=== PATIENT | male | born 1945 | race Caucasian/White ===

== ENCOUNTER 2017-12-24 19:08 | Inpatient (IN) | payer OTHER ==
[~2017-12-24] VITALS: Ht 172.7 cm; Wt 74.8 kg
[~2017-12-24 19:08] MED LIST: ALLOPURINOL300 MG; AMLODIPINE BESYL5 MG; ATORVASTATIN CA20 MG; CALCITRIOL0.25 MCG; CARVEDILOL12.5 MG PO; FUROSEMIDE40 MG PO; HUMULIN 70/30 V10 ML; HYDRALAZINE HCL25 MG PO; ISOSORBIDE MONO30 MG PO; LANTUS SOLOSTAR3 ML; LEVAQUIN500 MG PO; LOSARTAN POTAS100 MG; LOSARTAN POTASS50 MG PO; METFORMIN; SIMVASTATIN20 MG PO; TOPROL XL50 M1; ULTRACET PO
== END 2017-12-25 21:09 | disposition designated cancer center or children's hospital (05) | DRG 314 ==
LOC: ER 19:08 → MEDI 21:14 → SEC-K 21:14 → MEDI 22:35
PROC: B246ZZZ Ultrasonography of Right and Left Heart (ICD-10-PCS; principal; 2017-12-24)
PROC: BW28ZZZ Computerized Tomography (CT Scan) of Head (ICD-10-PCS; 2017-12-24)
PROC: 4A12X4Z Monitoring of Cardiac Electrical Activity, External Approach (ICD-10-PCS; 2017-12-25)
DX: I31.3 Pericardial effusion (noninflammatory) (principal); N18.6 End stage renal disease; I42.0 Dilated cardiomyopathy; I13.2 Hypertensive heart and chronic kidney disease with heart failure and with stage 5 chronic kidney disease, or end stage renal disease; I50.30 Unspecified diastolic (congestive) heart failure; R55 Syncope and collapse; T80.89XA Other complications following infusion, transfusion and therapeutic injection, initial encounter; Y65.8 Other specified misadventures during surgical and medical care; Y92.538 Other ambulatory health services establishments as the place of occurrence of the external cause; Z99.2 Dependence on renal dialysis; E11.22 Type 2 diabetes mellitus with diabetic chronic kidney disease

== ENCOUNTER 2018-03-04 08:11 | Emergency (ER) | payer OTHER ==
[~2018-03-04] VITALS: Ht 172.7 cm; Wt 70.3 kg
== END 2018-03-04 22:33 | disposition home or self-care (01) ==
LOC: ER 08:11 → CPU-OBS 08:16 → ER 22:33
DX: R07.89 Other chest pain (principal); I13.2 Hypertensive heart and chronic kidney disease with heart failure and with stage 5 chronic kidney disease, or end stage renal disease; N18.6 End stage renal disease; Z99.2 Dependence on renal dialysis

== ENCOUNTER 2019-03-07 19:02 | Inpatient (IN) | payer OTHER ==
[~2019-03-07] VITALS: Ht 165.1 cm; Wt 81.6 kg
--- NOTE | 2019-03-07 19:32 | NUR ---
SE RECIBE PTE ALERTA Y ORIENTADO X3,REFIERE DOLOR EN EL PECHO LADO DERECHO EN UN CATETER DE DIALISIS ,LE COMENZO MICHELLE.
[2019-03-07] MEDS ORDERED: PHOSLO667 M1 (19:45)
[2019-03-07] MEDS ORDERED: LANTUS SOL100 UNIT/1 (19:46)
[2019-03-07] MEDS ORDERED: RENALCAL250 M1 (19:46)
--- NOTE | 2019-03-07 20:13 | NUR ---
SE ORIENTA PTE SOBRE TRATAMIENTO. SE ANIL MUESTARS DE CALIN Y SE CANALIZA PERIFERALMENTE POR SEAN RAMIRESIEN ADMINISTRA MEDICAMENTOS ORDENADOS. SE REALIZA PLACA POR PERSONAL DE RX. PTE PENDIENTE A RE-EVALAUCION POR MEDICO DE TURNO.
--- NOTE | 2019-03-08 07:36 | NUR ---
SE RECIBE DE TURNO ANTERIOR. PACIENTE MASCULINO. ALERTA Y ORIENTADO EN SAMMI ESFERAS. BUEN PATRON RESPIRATORIO. PIEL TIBIA AL TACTO. CANALIZACION PATENTE, PHILLIP DE EDEMA Y.O ENROJECIMIENTO CON SALINE LOCK COLOCADO. PACIENTE EN ESPERA DE CONSULTA CON DR E CASTANEDA. SE MANTIENE BAJO OBSERVACION POR CAMBIOS.
== END 2019-03-10 10:34 | disposition home or self-care (01) | DRG 699 ==
LOC: ER 19:02 → MEDJ 03-08 11:41 → MEDI 03-08 11:41 → MEDJ 03-08 18:29
PROVIDERS: ADMIT Internal Medicine
PROC: B246ZZZ Ultrasonography of Right and Left Heart (ICD-10-PCS; principal; 2019-03-09)
PROC: 5A1D70Z Performance of Urinary Filtration, Intermittent, Less than 6 Hours Per Day (ICD-10-PCS; 2019-03-09)
DX: E11.22 Type 2 diabetes mellitus with diabetic chronic kidney disease (principal); I12.0 Hypertensive chronic kidney disease with stage 5 chronic kidney disease or end stage renal disease; I30.8 Other forms of acute pericarditis; J98.11 Atelectasis; N18.6 End stage renal disease; Z99.2 Dependence on renal dialysis; Z79.4 Long term (current) use of insulin; Z88.0 Allergy status to penicillin; N17.8 Other acute kidney failure; I11.9 Hypertensive heart disease without heart failure; I25.118 Atherosclerotic heart disease of native coronary artery with other forms of angina pectoris; E78.00 Pure hypercholesterolemia, unspecified; E11.40 Type 2 diabetes mellitus with diabetic neuropathy, unspecified

== ENCOUNTER 2021-06-30 23:20 | Emergency (ER) | payer OTHER ==
[~2021-06-30] VITALS: Ht 172.7 cm; Wt 79.8 kg
[~2021-06-30 23:20] MED LIST changes: +LANTUS SOL100 UNIT/1; +PHOSLO667 M1; +RENALCAL250 M1
[2021-06-30] MEDS ORDERED: METOPROLOL SUCC50 MG (23:54)
[2021-06-30] MEDS ORDERED: CAMBIA50 MG (23:55)
[2021-06-30] MEDS ORDERED: LOSARTAN POTASS50 MG (23:55)
[2021-07-01] MEDS ORDERED: PEPCID AC20 MG PO (03:35)
[2021-07-01] MEDS ORDERED: ACETAMINOPHEN650 M2 PO (03:35)
[2021-07-01] MEDS ORDERED: NORFLEX100MG PO (03:35)
== END 2021-07-01 03:56 | disposition home or self-care (01) ==
LOC: ER 23:20
DX: R07.89 Other chest pain (principal); Z20.822 Contact with and (suspected) exposure to COVID-19

== ENCOUNTER 2022-05-09 17:49 | Emergency (ER) | payer OTHER ==
[~2022-05-09] VITALS: Ht 167.6 cm; Wt 80.7 kg
[~2022-05-09 17:49] MED LIST changes: +ACETAMINOPHEN650 M2 PO; +CAMBIA50 MG; +LOSARTAN POTASS50 MG; +METOPROLOL SUCC50 MG; +NORFLEX100MG PO; +PEPCID AC20 MG PO
[2022-05-09] MEDS ORDERED: PROTONIX40 MG (18:31)
== END 2022-05-09 21:13 | disposition left against medical advice (07) ==
LOC: ER 17:49
DX: T82.7XXA Infection and inflammatory reaction due to other cardiac and vascular devices, implants and grafts, initial encounter (principal); Z88.0 Allergy status to penicillin; I12.0 Hypertensive chronic kidney disease with stage 5 chronic kidney disease or end stage renal disease; N18.6 End stage renal disease; Z99.2 Dependence on renal dialysis